=== PATIENT | female | born 1955 | race Caucasian/White ===

== ENCOUNTER 2016-07-16 07:16 | Emergency (ER) | payer OTHER ==
[~2016-07-16] VITALS: Ht 157.5 cm; Wt 80.0 kg
[~2016-07-16 07:16] MED LIST: AMLO5TAB4 PO; BENA40TA41 PO
[2016-07-16 07:22] VITALS: Ht 157.5 cm; Wt 80.0 kg
[2016-07-16] MEDS ORDERED: TETRACAINE 0.5% 4 ML OPH LEFT EYE ONE (08:00)
[2016-07-16] MEDS ORDERED: FLUORESCEIN STRIP LEFT EYE ONE (08:00)
[2016-07-16] MEDS ORDERED: POLY10DR19 LEFT EYE (08:12)
--- NOTE | 2016-07-16 08:43 | ERD ---
ER Documentation Chief Complaint Date/Time DATE: 07/16/16 TIME: 08:37 Chief Complaint lt eye redness /pain x 1 week HPI 61-year-old female comes emergency room with eye redness and drainage for the past 1 week. She describes as a sharp pain, with mild photophobia and white discharge on and off for the past 5 days. She did buy [id number] contact lens solution. She does not wear any corrective lenses or contacts however. She denies any visual disturbances or blurred vision associated. No fevers or chills. Denies eye trauma. Denies foreign body entrance. ROS All systems reviewed and are negative except as per history of present illness. Medications Home Meds Active Scripts Polymyxin B Sulfate-TMP* (Polymyxin B-TMP Eye Drops*) 10 Ml Drops, 1 DROP LEFT EYE QID for 7 Days, EA Prov:JUANCHO HENRY PA-C 07/16/16 Amlodipine Besylate* (Norvasc*) 5 Mg Tablet, 10 MG PO DAILY for 90 Days, TAB Prov:SIXTO PRICE MD 06/07/15 Reported Medications Benazepril Hcl* (Benazepril Hcl*) 40 Mg Tablet, 40 MG PO DAILY, #30 TAB 06/02/15 Allergies Allergies: Coded Allergies: No Known Drug Allergy (Verified Allergy, Mild, 01/09/10) PMhx/Soc Anesthesia Reaction: No Hx Neurological Disorder: No Hx Respiratory Disorders: No Hx Cardiac Disorders: Yes (HTN) Hx Psychiatric Problems: No Hx Alcohol Use: No Hx Substance Use: No Hx Tobacco Use: No Smoking Status: Never smoker Physical Exam Vitals Vital Signs Date Time Temp Pulse Resp B/P Pulse Ox O2 Delivery O2 Flow Rate FiO2 07/16/16 07:22 98.2 81 18 148/81 98 Physical Exam General: Well-developed, well-nourished. The patient appears in no acute distress. HEENT: Head is normocephalic, atraumatic. No scleral icterus. Left eye has injection, ecchymosis, eyes are Georgette. No foreign body seen. No uptake with fluorescein staining. Neck: Supple. Nontender. Lungs: Clear to auscultation. Normal air movement. Heart: Regular rate and rhythm. S1 and S2 are normal. No murmurs, gallops, or rubs. Abdomen: Nondistended. Extremities: No clubbing or cyanosis. Moving extremities x 4. No weakness. Neurologic: Alert and oriented 3. No focal deficits. Normal speech and gait. Skin: Normal turgor. No rash or lesions. Results 24 hrs Current Medications Medications (Trade) Dose Ordered Sig/Elias Route PRN Reason Start Time Stop Time Status Last Admin Dose Admin Fluorescein Sodium ([id number]-[id number]) 1 strip ONCE ONCE LEFT EYE 07/16/16 08:00 07/16/16 08:01 DC Tetracaine HCl (Tetracaine 0.5% Steri-Unit Adilia) 1 drop ONCE ONCE LEFT EYE 07/16/16 08:00 07/16/16 08:01 DC Procedures/MDM ED course: Munir-Pen readings were elevated bilaterally, likely false read. Patient was also evaluated at bedside by my attending physician who agrees that the patient presents with an infectious process. Other differentials including iritis, corneal ulcer, acute angle-closure glaucoma, foreign body, globe rupture, orbital cellulitis or periorbital cellulitis were also considered however unlikely. Patient will be given drops. Departure Diagnosis: Primary Impression: Conjunctivitis Condition: Good Patient Instructions: Conjunctivitis, Bacterial Referrals: [facility] Hours: Mon - Fri 9:00 AM - 5:00 PM Additional Instructions: Specialista de HIMA :Usted tiene brynn condicin mdica que requiere que aravind a un especialista dentro de los prximos 1-2 olson.POR FAVOR,CON CORREA SEGUIMIENTO DE PRIMARIA PHSICIAN refferal. SI USTED NO TIENE UN MDICO GENERAL Y / O USTED NO PUEDE PAGAR layo a un mdico,los siguientes ashley RECURSOS sido suministrado a usted. ES CORREA RESPONSABILIDAD PARA SER VISTOS POR EL ESPECIALISTA: JUANCHO HENRY PA-C July 16, 2016 08:43
== END 2016-07-16 08:48 | disposition home or self-care (01) ==
LOC: FTE 07:16
DX: H10.9 Unspecified conjunctivitis (principal); I10 Essential (primary) hypertension
CPT/HCPCS: Z7502; Z7610; 99283